=== PATIENT | male | born 1955 | race Caucasian/White ===

== ENCOUNTER 2020-05-15 13:35 | Outpatient (RCR) | payer MEDICARE, OTHER, SELFPAY ==
[2020-05-15] MEDS: COVID-19 VACC, MRNA(PFIZER)/PF 30 MCG/0.3 ML SYRINGE IM (15:25)
[2020-06-05] MEDS: COVID-19 VACC, MRNA(PFIZER)/PF 30 MCG/0.3 ML SYRINGE IM (15:08)
== END 2020-08-14 23:59 ==
LOC: IMMUN 13:35
PROVIDERS: Visit Provider Family Medicine
DX: Z23 Encounter for immunization (principal)
CPT/HCPCS: 0001A; 0002A; 91300